=== PATIENT | female | born 1965 | race Caucasian/White ===

== ENCOUNTER 2018-02-09 20:16 | Emergency (ER) | payer OTHER ==
[2018-02-09] MEDS: FLUORESCEIN STRIP RIGHT EYE (22:42)
[2018-02-09] MEDS: TETRACAINE 0.5% 4 ML OPH RIGHT EYE (22:42)
[2018-02-09] MEDS: HYDROCODONE/APAP (5/325) TAB PO (23:48)
[2018-02-10] MEDS: HYDROCODONE/APAP (5/325) TAB PO (01:12)
== END 2018-02-10 02:59 | disposition home or self-care (01) ==
LOC: FTE 02-10 02:59
DX: H11.31 Conjunctival hemorrhage, right eye (principal); H43.12 Vitreous hemorrhage, left eye; I10 Essential (primary) hypertension; E11.9 Type 2 diabetes mellitus without complications
CPT/HCPCS: 76536; 99284-25